=== PATIENT | male | born 1970 | race African-American/Black ===

== ENCOUNTER 2020-06-20 02:30 | Outpatient (CLI) | payer OTHER, SELFPAY ==
[2020-06-20 18:16] LABS: SARS-CoV-2 RNA PCR Negative
== END 2020-06-20 02:31 | disposition home or self-care (01) ==
LOC: ANHCOVIDDT 02:30
PROVIDERS: PCP Family Medicine; Visit Provider Internal Medicine Critical Care Medicine
DX: Z01.812 Encounter for preprocedural laboratory examination (principal); Z20.828 Contact with and (suspected) exposure to other viral communicable diseases
CPT/HCPCS: 87635; C9803; U0003

== ENCOUNTER 2020-06-22 09:06 | Outpatient (CLI) | payer OTHER, SELFPAY ==
--- NOTE | 2020-07-18 16:07 | WPDSLEEPSTUD ---
Sleep Study Date of Study: 06/22/20 Ordering Provider: Jong Nguyen MD Interpreting Physician: Dona Posada MD Sleep Study Type: BiPAP Titration Height: 1.75 m Weight: 190.509 kg Body Mass Index: 62.0 Neck Circumference: 52.07 cm [place]: 5 Reason for Sleep Study History of PATRICK and COPD overlap ASV titration 02/09/2013 with BMI 76.8, weight 520 lb prior to gastric bypass; the ASV titration was after inadequate BiPAP titration 06/24/2012; oxygen was suggested to add the the ASV settings of Sleep History Jose Manuel Briones is a 49 yo man with a history of obstructive sleep apnea syndrome managed by Dr. Diop in the past. He has lost over 100 lb following gastric bypass surgery. He still snores using his CPAP. No compliance was available for review. His prior sleep studies showed 10/12/2009 - split night study with severe obstructive sleep apnea; optimal pressure 25 cm H20 plus 2 L of oxygen 06/24/2012 - CPAP BiPAP titration with no optimal pressure, final pressure was 28/21 02/09/2013- ASV titration with optimal pressure of I-max 10 cm, I-min 5 cm, Expiratory pressure maximum 15 cm, Expiratory minimum 12 cm with 2-3 L O2 recommended but was not titrated during the study He presents for a repeat titration. He has a difficult time getting to sleep and staying asleep. This has been going on for years. There is no family history of sleep disordered breathing. He is reportedly using CPAP for sleep apnea however no compliance data is available. His last study in 2012 showed that he was using AVAPS-AE. He frequently snores loudly enough that others complain about it. He rarely awakens at night with heartburn, belching or coughing. He occasionally awakens from sleep feeling short of breath. He occasionally has trouble sleeping with a cold. He rarely wakes up gasping for breath at night. He frequently has breathing problems at night observed by others. He occasionally sweats excessively at night, rarely notices his heart pounding or beating irregularly at night, rarely falls asleep during the day rarely falls asleep involuntarily and never falls asleep while driving. He does not fall asleep during physical effort. He does not have loss of muscle tone with strong emotion. He does not have daytime difficulties due to excessive sleepiness. He does not feel paralyzed on waking or falling asleep. He rarely has vivid dreamlike scenes upon awakening or falling asleep. He has never for a to go to sleep. He rarely has nightmares. He occasionally remembers his dreams. He rarely has racing thoughts. He does not feel sad or depressed. He rarely has anxiety. He rarely has muscular tension. He occasionally notices parts of his body jerking. He rarely kicks at night. He occasionally has crawling and aching feelings in his legs. He frequently has leg pain at night. He occasionally has morning jaw pain. He rarely grinds his teeth during sleep. He frequently has bothered by pain during the day and frequently is awakened by pain during the night. He occasionally wakes up feeling stiff in the morning, rarely with sore or achy muscles. He occasionally wakes up with pain in the neck and spine. Normal bedtime is 11:00 p.m., falling asleep within an hour. He typically wakes 4-5 times at night and stays awake for 30-45 minutes. While awake he will try to reposition and go to sleep again. He wakes in the morning at 6:00 a.m.. On the weekends he goes to bed at the same time 11:00 p.m. and wakes at 8:00 a.m.. He does not usually take a nap. A short nap may be refreshing. He feels better in the evening compared to earlier in the day. [facility] Past Medical History Medical History (Updated 07/18/20 @ 18:14 by Dona Posada MD) Chronic pain COPD (chronic obstructive pulmonary disease) Diabetes mellitus Hypertension PATRICK (obstructive sleep apnea) Surgical History Surgical History Status post gastric surgery
[2020-07-21 16:49] VITALS: BMI 62.0
== END 2020-06-22 09:07 | disposition home or self-care (01) ==
LOC: ANHCSM 09:30
PROVIDERS: PCP Family Medicine; Visit Provider Internal Medicine Critical Care Medicine
DX: G47.33 Obstructive sleep apnea (adult) (pediatric) (principal); J44.9 Chronic obstructive pulmonary disease, unspecified
CPT/HCPCS: 95811